=== PATIENT | female | born 1995 | race Caucasian/White ===

== ENCOUNTER 2016-10-15 18:29 | Emergency (ER) | payer OTHER ==
[~2016-10-15] VITALS: Ht 162.6 cm; Wt 113.4 kg
--- NOTE | 2016-10-15 19:18 | ED UPPER/LOWER EXTREMITY COMPL ---
History of Present Illness General Chief Complaint: Lower Extremity Problems Stated Complaint: BILATERAL ANKLE SWELLING, KNEE PAIN Source: patient Exam Limitations: no limitations Vital Signs & Intake/Output Vital Signs & Intake/Output Vital Signs Date Time Temp Pulse Resp B/P B/P Pulse O2 O2 Flow FiO2 Mean Ox Delivery Rate 10/150 99.0 92 20 139/87 96 Room Air 10/15 1913 98.3 97 20 122/74 96 Room Air ED Intake and Output 10/16 0000 10/15 1200 Intake Total Output Total 250 Balance -250 Output, Urine 250 Patient 250 lb Weight Weight Reported by Patient Measurement Method Allergies Coded Allergies: No Known Allergies (10/15/16) Reconcile Medications Beclomethasone Dipropionate (Qnasl) 80 MCG/ACTUATION HFA.AER.AD 2 SPRAY NASB PRN ALLERGIES (Reported) Cyclobenzaprine HCl 5 MG TABLET 1 TAB PO TIDPRN PRN MUSCLE SPASMS Desloratadine (Clarinex) 5 MG TABLET 1 TAB PO PRN ALLERGIES (Reported) Hydroxyzine HCl 25 MG TABLET 1 TAB PO PRN ANXIETY (Reported) Naproxen (Naprosyn) 500 MG TABLET 1 TAB PO BID PAIN AND INFLAMMATION Norgestimate-Ethinyl Estradiol (Sprintec 28 Day Tablet) 0.25 MG-35 MCG TABLET 1 TAB PO DAILY CONTROL (Reported) Sertraline HCl (Zoloft) 50 MG TABLET 1 TAB PO DAILY MENTAL HEALTH (Reported) Triage Note: TRIAGE: PT TO ER C/C R ANKLE PAIN, ONSET THIS MORNING. Triage Nurses Notes Reviewed? yes Onset: Abrupt Duration: hour(s): Timing: single episode today Severity: mild Pain/Injury Location: Bilateral: Ankle. Method of Injury: unknown Modifying Factors: Improves With: rest. Worsens With: movement. Associated Symptoms: swelling : No Patient currently breastfeeds: No HPI: 20 yo woman h/o depression presents after an episode of mid/lower back pain, which radiated to her buttocks , and then also an episode of right lower ankle pain. "I felt really bad back pain while driving... and then it got better.... then I was just sitting and had my legs crossed... then I felt pain in my right ankle.... it feels swollen there now... It seems like my left ankle is starting to get swollen as well." She notes that she has no fever, chills, dyspnea. She has no pain when she is keeping still, but notes pain with ambulation. Past History Travel History Traveled to [place] past 21 day No Medical History Any Pertinent Medical History? 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 No Review of Systems Review of Systems Constitutional: Reports: no symptoms. EENTM: Reports: no symptoms. Respiratory: Reports: no symptoms. Cardiovascular: Reports: no symptoms. Gastrointestinal/Abdominal: Reports: no symptoms. Genitourinary: Reports: no symptoms. Musculoskeletal: Reports: no symptoms. Skin: Reports: no symptoms. Neurological/Psychological: Reports: no symptoms. Hematologic/Endocrine: Reports: no symptoms. Immunological: Reports: no symptoms. All Other Systems: Reviewed and Negative Physical Exam Physical Exam General Appearance: well developed/nourished, mild distress Head: atraumatic Eyes: Bilateral: PERRL, EOMI. Ears, Nose, Throat: normal pharynx, normal ENT inspection, hearing grossly normal Neck: normal inspection, supple Cardiovascular/Respiratory: regular rate/rhythm Back: normal inspection, muscle spasm, no vertebral tenderness Foot Right: mild swelling around ankle, with focal tenderness at the lateral aspect of achilles tendon. No rudy's sign. calf edema bilaterally. mild diffuse swelling around left ankle, without tenderness. No plantar tenderness. ROM is normal. Skin: intact, normal color, warm/dry Lymphatic: no anterior cervical curly Progress Differential Diagnosis: tendonitis vs sprain vs muscle spasm vs other... well's criteria 0 for dvt. Plan of Care: Orders Procedure Date/time Status URINE 10/16 2103 Complete Laboratory Tests 10/15/16 2100: Urine Test NEGATIVE Departure Departure Disposition: HOME OR SELF CARE Condition: Stable Clinical Impression Primary Impression: Back pain Secondary Impressions: Tendonitis Referrals: PATIENT HAS NO PRIMARY CARE DR (PCP/Family) Departure Forms: Customer Survey General Discharge Information Prescriptions: Current Visit Scripts Cyclobenzaprine HCl 1 TAB PO TIDPRN PRN MUSCLE SPASMS #12 TAB Naproxen (Naprosyn) 1 TAB PO BID #20 TAB Comments upon discharge, pt wishes a second opinoin... discussed with ag lea who will see patient.
[2016-10-15] MEDS ORDERED: ZOLOFT50 M1 PO (20:04)
[2016-10-15] MEDS ORDERED: CLARINEX5 M1 PO (20:05)
[2016-10-15] MEDS ORDERED: QNASL8.7 GM NASB (20:05)
[2016-10-15] MEDS ORDERED: HYDROXYZINE HCL25 M2 PO (20:05)
[2016-10-15] MEDS ORDERED: SPRINTEC 28 DA1 EACH PO (20:05)
--- NOTE | 2016-10-15 21:25 | ED UPPER/LOWER EXTREMITY COMPL ---
History of Present Illness General Chief Complaint: Lower Extremity Problems Stated Complaint: BILATERAL ANKLE SWELLING, KNEE PAIN Source: patient Exam Limitations: no limitations Vital Signs & Intake/Output Vital Signs & Intake/Output Vital Signs Date Time Temp Pulse Resp B/P B/P Pulse O2 O2 Flow FiO2 Mean Ox Delivery Rate 10/15 2150 99.0 92 20 139/87 96 Room Air 10/15 1913 98.3 97 20 122/74 96 Room Air ED Intake and Output 10/16 0000 10/15 1200 Intake Total Output Total 250 Balance -250 Output, Urine 250 Patient 250 lb Weight Weight Reported by Patient Measurement Method Allergies Coded Allergies: No Known Allergies (10/15/16) Triage Note: TRIAGE: PT TO ER C/C R ANKLE PAIN, ONSET THIS MORNING. ALSO COMPLAINS OF BACK PAIN, LOWER LEG PAIN, NUMBNESS AND TINGLING. ANKLE SWELLING WELL. ONSET YESTERDAY WITH BACK SPASM PAIN WHICH HAD RESOLVED WHEN SHE WOKE UP THIS MORNING. STATES ANKLE HAS "LITERALLY DOUBLED IN SIZE IN THE LAST 4 HOURS". DENIES ANY INJURY OR AGGRAVATING FACTORS. Triage Nurses Notes Reviewed? yes : No Patient currently breastfeeds: No HPI: This patient is a 20-year-old female who presented to the emergency department today for evaluation of back pain and right ankle pain. The patient reported that yesterday while she was sitting in her car driving she noticed that she began having lower back spasms. She reported that while she was driving the pain continued to get worse. She reported that the pain seemed to radiate to her knees bilaterally. She reported that the pain got to an 8 out of 10, was sharp, and constant until she went to bed. She took Motrin when she got home, but this did not help. She reported that she fell asleep with the pain and woke up with it resolved. However, as she was going through her day today, she noticed that her right ankle began to get swollen and she noticed the pain in the outside of her ankle. She denied any trauma or falls. The patient reported that her left ankle began to swell today as well, but was not painful. She reported that the pain in her lower back came back. She reported, "this did not feel like a spasm, but more of a sharp pain in the center of my back." She reported that the back pain has been constant since it began again this afternoon. Her ankle pain is worse with ambulation. (JOSEPH PEREZ PA-C) Reconcile Medications Beclomethasone Dipropionate (Qnasl) 80 MCG/ACTUATION HFA.AER.AD 2 SPRAY NASB PRN ALLERGIES (Reported) Cyclobenzaprine HCl 5 MG TABLET 1 TAB PO TIDPRN PRN MUSCLE SPASMS Desloratadine (Clarinex) 5 MG TABLET 1 TAB PO PRN ALLERGIES (Reported) Hydroxyzine HCl 25 MG TABLET 1 TAB PO PRN ANXIETY (Reported) Naproxen (Naprosyn) 500 MG TABLET 1 TAB PO BID PAIN AND INFLAMMATION Norgestimate-Ethinyl Estradiol (Sprintec 28 Day Tablet) 0.25 MG-35 MCG TABLET 1 TAB PO DAILY CONTROL (Reported) Sertraline HCl (Zoloft) 50 MG TABLET 1 TAB PO DAILY MENTAL HEALTH (Reported) (LINDSAY PATEL,ROXANNE Estrada) Past History Travel History Traveled to [place] past 21 day No Medical History Any Pertinent Medical History? 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 No (JOSEPH PEREZ PA-C) Review of Systems Review of Systems Constitutional: Reports: no symptoms. EENTM: Reports: no symptoms. Respiratory: Reports: no symptoms. Cardiovascular: Reports: no symptoms. Gastrointestinal/Abdominal: Reports: no symptoms. Musculoskeletal: Reports: see HPI. Skin: Reports: no symptoms. Neurological/Psychological: Reports: see HPI. All Other Systems: Reviewed and Negative (JOSEPH PEREZ PA-C) Physical Exam Physical Exam General Appearance: well developed/nourished, no apparent distress, alert, awake Comments: Well-developed well-nourished person in no acute distress HEENT: Normal EENT exam, head normocephalic, moist mucous membranes Pupils equally round and reactive to light. Neck: Supple, no lymphadenopathy Back: Antalgic gait. Midline lumbar spine tenderness. No paraspinal musculature tenderness. Negative straight leg raise bilaterally Respiratory: No respiratory distress. Speaking in full sentences Right ankle/foot: Edema noted to the lateral malleolus. No overlying erythema or ecchymosis. No bony or muscular deformities noted. Full range of motion of the ankle. Tenderness to palpation over the lateral malleolus. Dorsalis pedis and posterior tibialis pulses 2+ and strong Neuro: Alert oriented x3, cranial nerves II through XII grossly intact. Skin: No appreciable rash on exposed skin, skin is warm and dry. Psych: Mood and affect is normal, memory and judgment is normal. (CHRIS MCKEON,JOSEPH) Progress Differential Diagnosis: arterial insufficiency, cellulitis, CHF, compartment syndrome, contusion, dislocation, DVT, fracture, gout, septic arthritis, sprain, tendon injury Plan of Care: Orders Procedure Date/time Status URINE 10/16 2103 Complete Laboratory Tests 10/15/16 2100: Urine Test NEGATIVE Diagnostic Imaging: Viewed by Me: Radiology Read, CT Scan. Discussed w/RAD: Radiology Read, CT Scan. Radiology Impression: PATIENT: TY ABURTO PRESENT AGE: 20 PATIENT ACCOUNT NO: [id number] : 93 LOCATION: [facility] ORDERING PHYSICIAN: JOSEPH PEREZ PA-C SERVICE DATE: 10/15/16 EXAM TYPE: RAD - XRY-ANKLE 3 OR MORE VIEWS R EXAMINATION: XR ANKLE, RIGHT CLINICAL INFORMATION: Pain COMPARISON: 10/12/2009 TECHNIQUE: AP, lateral, and mortise views of the right ankle. FINDINGS: The talar dome is intact. The ankle mortise is congruent. There is mild soft tissue swelling, particularly laterally. There is no acute fracture or subluxation. A prominent os trigonum measuring up to approximately 1 cm is visualized. No radiopaque foreign body. No lytic or sclerotic lesion. The calcaneus is unremarkable. IMPRESSION: Unremarkable right ankle examination. Prominent os trigonum noted. DICTATED BY: SIMÓN MATA MD DATE/TIME DICTATED:2150 INGREDIENT SCALER HELPER:MEGHA DATE/TIME TRANSCRIBED:10/15/162150 CONFIDENTIAL, DO NOT COPY WITHOUT APPROPRIATE AUTHORIZATION. <Electronically signed in Other Vendor System> SIGNED BY: SIMÓN MATA MD 10/15/162156, PATIENT: TY ABURTO PRESENT AGE: 20 PATIENT ACCOUNT NO: [id number] : 93 LOCATION: [facility] ORDERING PHYSICIAN: JOSEPH PEREZ PA-C SERVICE DATE: 10/15/16 EXAM TYPE: CAT - CT LUMB SPINE WO IV CONTRAST EXAMINATION: CT LUMBAR SPINE WITHOUT CONTRAST CLINICAL INFORMATION: Lower back pain COMPARISON: Lumbosacral spine 08/02/2010 TECHNIQUE: Helical non- contrast CT images were obtained through the lumbar spine and 1.25 and 2.5 mm axial reconstructions were reviewed along with sagittal and coronal MPRs. DLP: 1094.5 mGy-cm FINDINGS: The intervertebral disc spaces and vertebral body heights are maintained. There are 5 lumbar type vertebral bodies. No fracture or subluxation. SPINAL LEVELS: T12-L1: Normal. L1-L2: Normal. L2-L3: Normal. L3-L4: Normal. L4-L5: Normal. L5-S1: Normal. IMPRESSION: Unremarkable lumbar spine examination. No interval change. DICTATED BY: SIMÓN MATA MD DATE/TIME DICTATED :10/15/162158 INGREDIENT SCALER HELPER:MEGHA DATE/TIME TRANSCRIBED:10/15/162158 CONFIDENTIAL, DO NOT COPY WITHOUT APPROPRIATE AUTHORIZATION. < Electronically signed in Other Vendor System> SIGNED BY: SIMÓN MATA MD 2206 (JOSEPH PEREZ PA-C) Departure Departure Disposition: HOME OR SELF CARE Condition: Stable Clinical Impression Primary Impression: Os trigonum syndrome Referrals: PATIENT HAS NO PRIMARY CARE DR (PCP/Family) RICKEY MEDINA MD Additional Instructions: Take medication for pain and inflammation as prescribed. Take Flexeril as prescribed for muscle relaxation; this medication may make you drowsy, so please avoid operating any heavy machinery or driving while taking this medication. Elevate your ankle when possible. You may use compression stockings to help with swelling. Apply ice the affected area for 15-20 minutes, 3-4 times a day. Gentle stretching of your back. Please follow-up with the orthopedist whose information has been provided to you in this packet or with your own orthopedist for further evaluation and management. Return to the emergency department for any worsening symptoms or concerns. Departure Forms: Customer Survey General Discharge Information Prescriptions: Current Visit Scripts Cyclobenzaprine HCl 1 TAB PO TIDPRN PRN MUSCLE SPASMS #12 TAB Naproxen (Naprosyn) 1 TAB PO BID #20 TAB (JOSEPH PEREZ PA-C) PA/GENETIC PHYSICIAN Co-Sign Statement Statement: ED Attending supervision documentation- [x] I saw and evaluated the patient. I have also reviewed all the pertinent lab results and diagnostic results. I agree with the findings and the plan of care as documented in the PA's/GENETIC PHYSICIAN's documentation. [] I have reviewed the ED Record and agree with the PA's/GENETIC PHYSICIAN's documentation. [] Additions or exceptions (if any) to the PAs/GENETIC PHYSICIAN's note and plan are summarized below: [] (LINDSAY PATEL,ROXANNE Estrada)
[2016-10-15 21:50] VITALS: BP 139/87
--- NOTE | 2016-10-15 21:57 | RADIOLOGY REPORT ---
EXAMINATION: XR ANKLE, RIGHT CLINICAL INFORMATION: Pain COMPARISON: 10/12/2009 TECHNIQUE: AP, lateral, and mortise views of the right ankle. FINDINGS: The talar dome is intact. The ankle mortise is congruent. There is mild soft tissue swelling, particularly laterally. There is no acute fracture or subluxation. A prominent os trigonum measuring up to approximately 1 cm is visualized. No radiopaque foreign body. No lytic or sclerotic lesion. The calcaneus is unremarkable. IMPRESSION: Unremarkable right ankle examination. Prominent os trigonum noted.
--- NOTE | 2016-10-15 22:07 | CT SCAN REPORT ---
EXAMINATION: CT LUMBAR SPINE WITHOUT CONTRAST CLINICAL INFORMATION: Lower back pain COMPARISON: Lumbosacral spine 08/02/2010 TECHNIQUE: Helical non-contrast CT images were obtained through the lumbar spine and 1.25 and 2.5 mm axial reconstructions were reviewed along with sagittal and coronal MPRs. DLP: 1094.5 mGy-cm FINDINGS: The intervertebral disc spaces and vertebral body heights are maintained. There are 5 lumbar type vertebral bodies. No fracture or subluxation. SPINAL LEVELS: T12-L1: Normal. L1-L2: Normal. L2-L3: Normal. L3-L4: Normal. L4-L5: Normal. L5-S1: Normal. IMPRESSION: Unremarkable lumbar spine examination. No interval change.
[2016-10-15] MEDS ORDERED: CYCLOBENZAPRINE5 M2 PO (22:20)
[2016-10-15] MEDS ORDERED: NAPROSYN500 M1 PO (22:20)
== END 2016-10-15 22:26 ==
LOC: ERH 18:29
DX: M54.5 Low back pain (principal); M76.61 Achilles tendinitis, right leg
CPT/HCPCS: 73610-RT; 81025